=== PATIENT | female | born 1940 | race Caucasian/White ===

== ENCOUNTER → 2022-09-25 | Outpatient (CLI) | payer OTHER | END | disposition home or self-care (01) | LOC: RAH 11:29 | PROVIDERS: ATTEND Family Medicine | DX: M17.12 Unilateral primary osteoarthritis, left knee (principal) | CPT/HCPCS: 73562 ==

== ENCOUNTER → 2025-02-23 | Outpatient (CLI) | payer OTHER ==
[~2025-02-23] MED LIST: GADOTERATE MEGLUMINE 10 MMOL/20 ML VIAL IV ONE
--- NOTE | 2025-02-23 18:05 | HMCIMG ---
EXAM: MR Brain and Paranasal Sinuses with and without Intravenous Contrast. CLINICAL HISTORY: R47.01 Aphasia. TECHNIQUE: Multisequence, multiplanar magnetic resonance images acquired of the brain and paranasal sinuses with and without intravenous contrast. CONTRAST: With intravenous contrast. COMPARISON: None provided. FINDINGS: BRAIN: Diffuse cerebral volume loss with prominence of the ventricles and cortical sulci. Confluent periventricular and deep white-matter T2/FLAIR hyperintensities in the cerebral hemispheres, compatible with chronic small vessel ischemic change, Fazekas grade III. No restricted diffusion to indicate acute infarction. No intracranial mass, acute hemorrhage, midline shift, or extra-axial fluid collection. No abnormal parenchymal or meningeal enhancement. Major intracranial arterial and venous flow voids are preserved. VENTRICLES: Mildly enlarged in keeping with cerebral volume loss. No hydrocephalus. ORBITS: Right periorbital soft-tissue edema and fat stranding are present without definite intraorbital abscess or abnormal orbital enhancement. Globes and extraocular muscles are preserved in configuration. SINUSES AND MASTOIDS: Right maxillary and anterior ethmoid sinuses show mucosal thickening and partial opacification with segments of non-enhancing devitalized mucosa. There is associated premaxillary soft-tissue edema and fat stranding, with inflammatory fat infiltration in the right retroantral space. Mastoid air cells are clear. BONES: Focal cortical breach and abnormal enhancement of the fitzpatrick of the right maxillary sinus, most consistent with early osteomyelitis. No destructive calvarial lesion is seen. IMPRESSION: * Right maxillary and anterior ethmoidal sinusitis with non-enhancing devitalized sinonasal mucosa, marked premaxillary and right periorbital soft-tissue edema/fat stranding, retroantral inflammatory fat infiltration, and focal cortical breach with enhancing right maxillary sinus fitzpatrick consistent with early osteomyelitis; overall constellation of findings is most in keeping with acute invasive fungal sinusitis. * Diffuse cerebral volume loss with confluent periventricular and deep white-matter T2/FLAIR hyperintensities compatible with chronic microangiopathic change, Fazekas grade III. /[place]
== END | disposition home or self-care (01) ==
LOC: RAH 10:24
PROVIDERS: ATTEND Family Medicine
DX: I67.82 Cerebral ischemia (principal); J32.2 Chronic ethmoidal sinusitis; J34.2 Deviated nasal septum; G93.6 Cerebral edema; R47.01 Aphasia
CPT/HCPCS: 70553; A9575